=== PATIENT | male | born 1985 | race Caucasian/White ===

== ENCOUNTER → 2021-09-26 12:38 | Outpatient (CLI) | payer OTHER, SELFPAY ==
--- NOTE | ~2021-09-26 | US_ITS ---
EXAMINATION: US abdomen complete DATE: 09/26/2021 13:18 INDICATION: Unspecified abdominal pain TECHNIQUE: Multiple grayscale and Doppler ultrasound images of the abdomen were obtained. COMPARISON: None available FINDINGS: Bowel gas obscures visualization of the pancreas. The liver is normal with normal echogenic ity and echotexture. No surface nodularity. Normal hepatopetal flow in the main portal vein. The gall bladder is normal with no abnormal wall thickening, pericholecystic fluid or stones. The normal commo n bile duct measures 3 mm. There was no sonographic Tam sign. The visualized portions of the aorta and inferior vena cava are normal. The right kidney measures 12.1 x 5.6 x 6.4 cm. The left kidney measures 11.8 x 7.1 x 6.2 cm. The kidn eys demonstrate normal parenchymal echogenicity. There is no hydronephrosis. The spleen is normal in appearance and measures 13.2 cm. IMPRESSION: 1. No sonographic correlate for the patient's symptoms. Reviewed, dictated and finalized at location A.
== END ==
PROVIDERS: PCP Nurse Practitioner Family; Visit Provider Nurse Practitioner Family
DX: R10.9 Unspecified abdominal pain (principal)
CPT/HCPCS: 76700

== ENCOUNTER 2022-06-20 01:17 | Day surgery (SDC) | payer OTHER, SELFPAY ==
[2022-06-13 09:10] VITALS: BMI 34.9
--- NOTE | 2022-06-13 09:13 | PC.NURSE ---
Report to the Outpatient Waiting Room, entrance under the green pavilion located off [facility], at time 0600 on date 06/20/22. Planned Procedure Time: 0730. Time changes happen often and if your time is changed the preop area will call you the afternoon before. - You and your visitor will be asked to self-screen and do not enter if you have any COVID symptoms. - Only one visitor is requested with a max of two and NO children visitors are allowed at this time. - The patient visitor may be requested to leave or wait in car when not with patient due to distancing restrictions. - A mask is optional within the hospital at this time. Patients may have clear liquids (water, carbonated beverages, clear teas, apple juice) until 3 hours prior to surgery with a maximum of 20 ounces. - No food from midnight until time of surgery Take the following medications with a SIP of water the morning of surgery: N/A DO NOT STOP ANY OF YOUR OTHER PRESCRIPTION MEDICATIONS PRIOR TO SURGERY EXCEPT THE FOLLOWING Medications to discontinue per physician: N/A Date to take last dose: N/A Please no make-up, nail spanish, hairspray, perfume, deodorant, or body powder the day of surgery. No jewelry (including any body piercings) or valuables the day of surgery, leave them at home. Please take a shower or bath the night before, or the morning of, surgery with an antibacterial soap (HIBICLENS). Wear comfortable, loose fitting clothing. - Jewelry must be removed prior to entering the operating room. Rings and piercings that are not removed may be cut off. - The hospital will not accept responsibility for valuables. - Please leave all valuables, including medications, at home the day of surgery. If you are going home after surgery, a licensed home delivery driver must drive you home. - NO public transportation without another adult if you receive anesthesia. - We recommend that an adult stay with you for 24 hours following discharge. - We also recommend that you do not drive, make important decision, drink alcoholic beverages, or take any drugs that were not prescribed by your health care provider for at least 24 hours after your discharge time. Follow any additional instructions given to you from your surgeon. If you or anyone in your household have experienced Covid symptoms in the past week, please notify your surgeon or the nurse liaison at the phone number below for possible testing. Telephone instructions given to BRANDON LAUGHLIN and asked if any additional questions and then verbalized understanding. Patient advised to call surgeon office or pre surgery nurse liaison [phone] if any additional questions.
[2022-06-20] VITALS (7 sets, daily range): BP systolic 122–143; BP diastolic 65–92; PULSE 76–85; RESP 10–16; TEMP 36–36.3; O2SAT 99–100
[2022-06-20] MEDS: LACTATED RINGERS 1,000 ML 30 ML IV CONT (06:35)
[2022-06-20] MEDS: KETOROLAC 15 MG/ML VIAL (*BKC) IV PUSH (06:35)
[2022-06-20] MEDS: ACETAMINOPHEN 500 MG TABLET 1000 MG PO (06:35)
--- NOTE | 2022-06-20 06:48 | P.PNAN_ITS ---
Anes - Initial Pre Proc Eval Procedure: Operation Date: 06/20/22 07:30 Proposed Procedures p Open Umbilical Hernia Repair with Mesh - Patrizia Sosa MD Date/Time: 06/20/22 06:48 Surgeon: Patrizia Sosa MD Pre Op Diagnosis: Umb Hernia Patient Data Age: 37 Gender: M Height: 1.93 m Weight: 130 kg Last Vital Signs Temp 36.0 C L 06/20/22 06:10 Pulse 85 06/20/22 06:10 Resp 16 06/20/22 06:10 BP 143/91 H 06/20/22 06:10 Pulse Ox 99 06/20/22 06:10 O2 Del Method Room Air 06/20/22 06:10 Allergies Allergy/AdvReac Type Severity Reaction Status Date / Time shellfish derived Allergy Severe THROAT Verified 06/20/22 06:15 CLOSES Home Medications Medication Instructions Recorded Confirmed Type No Home Medications 06/13/22 06/20/22 History Patient hx anesthesia problems: none Family hx anesthesia problems: none Results Review: All pre-operative results and documents have been reviewed as part of the pre- operative evaluation. [facility] Past Medical History Medical History Abscess Body mass index [BMI] 30.0-30.9, adult (10/05/15) Dietary counseling and surveillance (06/12/17) Encounter for screening for lipoid disorders Infected sebaceous cyst of skin Local infection of the skin and subcutaneous tissue, unspecified Surgical History Surgical History H/O elbow surgery H/O knee surgery Family History Family History Father Patient's father is in good health Mother Patient's mother is in good health Social History Social History Smoking status: Never smoker Tobacco type: smokeless tobacco Smokeless tobacco user: chewing tobacco Alcohol intake: current Drinks per week: 8 Substance use: never Substance use type: does not use Living arrangements: with family Occupation/Education: occupation Gender identity (if verbalized by the patient): Male Spiritual care concerns: No Anes - Eval Final PreProcedure Day of Procedure 06/20/22 06:48 Patient weight: obese Heart: regular rate and rhythm Lungs: clear to auscultation Airway: Mallampati scale class II Neurological: alert and oriented Last oral intake: >/= 8 hours ASA classification: II Emergent: no Anesthetic plan: proceed Anesthesia type and monitoring: general LMA and standard monitoring Results Review: All pre-operative results and documents have been reviewed as part of the pre- operative evaluation. Informed Consent: The patient's anesthetic plan and its attendant risks and benefits were discu ssed with the patient/family/POA. Questions were solicited and answers provided to the satisfaction of the patient/family/POA.
--- NOTE | 2022-06-20 07:23 | PM.IMHP ---
H&P: HPI History of Present Illness Date/Time: 06/20/22 07:23 Chief Complaint: Periumbilical hernia Narrative: Mich is a 36 y/o male who presents to the office at the request of Larry Graham NP for evaluation of a painful bulge at his umbilicus. He states this bulge has been present for the past two years. He states he has pain with daily activities and after lifting heavy objects. He denies any problems with BM's. He has noticed a gradual increase in size. Review of Systems Review of Systems: All systems reviewed & are unremarkable except as noted in HPI and below PMFSH Past Medical History Medical History Abscess Body mass index [BMI] 30.0-30.9, adult (10/05/15) Dietary counseling and surveillance (06/12/17) Encounter for screening for lipoid disorders Infected sebaceous cyst of skin Local infection of the skin and subcutaneous tissue, unspecified Surgical History Surgical History H/O elbow surgery H/O knee surgery Family History Family History Father Patient's father is in good health Mother Patient's mother is in good health Social History Social History Smoking status: Never smoker Tobacco type: smokeless tobacco Smokeless tobacco user: chewing tobacco Alcohol intake: current Drinks per week: 8 Substance use: never Substance use type: does not use Living arrangements: with family Occupation/Education: occupation Gender identity (if verbalized by the patient): Male Spiritual care concerns: No Meds Home Medications and Allergies Home Medications Medication Instructions Recorded Confirmed Type No Home Medications 06/13/22 06/20/22 History Allergies Allergy/AdvReac Type Severity Reaction Status Date / Time shellfish derived Allergy Severe THROAT Verified 06/20/22 06:15 CLOSES Vital Signs Vital Signs - 24 hr 06/20/22 06:10 Temperature 36.0 C L Pulse Rate 85 Respiratory Rate 16 Blood Pressure 143/91 H Pulse Oximetry 99 Oxygen Delivery Room Air Exam Const: General: cooperative, comfortable, no acute distress and obese Resp: Auscultation: clear to auscultation bilaterally Cardio: Rate: regular rate Rhythm: regular rhythm GI: Inspection: normal to inspection, non-distended, obesity and visible herniation GI Palp: Yes abdominal tenderness, Yes Soft to palpation, Yes Tenderness to palpation present (GI), No Guarding due to palpation present (GI), No Rigid due to palpation and Yes Hernia present Other: periumbilical hernia - moderate sized approximately 4x3 cm, not reducible Assessment and Plan Assessment and plan (1) Umbilical hernia: Qualifiers: Obstruction and gangrene presence: without obstruction or gangrene Qualified Code(s): K42.9 - Umbilical hernia without obstruction or gangrene Code(s): K42.9 - Umbilical hernia without obstruction or gangrene Status: Acute Assessment and Plan: will setup for repair c mesh
--- NOTE | 2022-06-20 07:25 | WPDHPUPDATE1 ---
History and Physical Update Update Date/Time: 06/20/22 07:25 History and Physical has been reviewed, including an updated exam of the patient. There are NO changes in the patient's condition. Risks, benefits, and alternatives have been discussed and questions answered. Patient agrees to proceed with procedure.
[2022-06-20] MEDS: ceFAZolin 3 GM/D5W 100 ML 100 ML IVPB (07:30)
[2022-06-20] MEDS: BUPIVACAINE/EPINEPHRINE 0.5% 10 ML VIAL 30 ML INFILTRATE (08:01)
--- NOTE | 2022-06-20 08:33 | W.PM.PROC2 ---
Procedure Note - Detailed Date of Procedure 06/20/22 Pre-op Diagnosis incarcerated umbilical hernia Post-op Diagnosis Same Procedure Performed repair of incarcerated umbilical hernia with mesh Surgeon Patrizia Sosa MD Anesthesia General Indications 37 y/o M c incarcerated umbilical hernia Findings incarcerated umbilical hernia measuring approximately 2 and half by 1.5 cm Description of Procedure The patient was taken to the operating room placed in the supine position. After adequate induction of general anesthesia, the patient was prepped and draped in the normal sterile fashion. A time-out was then done to verify the patient's identity, as well as the procedure being performed. I began by localizing the area around the umbilicus. I then made a curvilinear incision in the infraumbilical fold. This was taken down to level fascia. I then was able to bluntly dissect around the umbilicus. I then carefully dissected the umbilicus off the underlying fascia. I then noted a 2.5 x 1.5 cm defect with a large amount of incarcerated preperitoneal fat. I was able to mobilize the incarcerated tissue and reduce it back into the abdominal cavity. This left an 2.5 x 1.5 cm defect. I then placed a 4.6 cm round piece of ventralex mesh in the underlay position. This was noted to have good, wide local coverage of the defect. I then closed this defect primarily with interrupted 0 Ethibond suture over the underlay mesh repair. I then reapproximated the umbilicus to the fascia with a 3 0 Vicryl U-stitch. The subcutaneous tissue was then closed with 3 0 Vicryl suture. The skin was closed with 4 0 Monocryl subcuticular suture. Dermabond was then placed on the wound. The patient tolerated the procedure well was extubated in the operating room postop. He will be transferred to the recovery room in stable condition. Implants 4.6 cm ventralex mesh in underlay position Estimated Blood Loss 5 Drains No Packing No Pathology None sent Complications No immediate complications Condition Stable Disposition PACU [facility] Billing Surgery - Charge Forward: Surgery Billing
--- NOTE | 2022-06-20 08:57 | SUR.PHASEI ---
0855: Simple mask removed.
== END 2022-06-20 10:15 | disposition home or self-care (01) ==
PROVIDERS: PCP Family Medicine; Visit Provider Surgery
PROC: (CPT 49592; principal; 2022-06-20 07:30)
DX: K42.0 Umbilical hernia with obstruction, without gangrene (principal); F17.220 Nicotine dependence, chewing tobacco, uncomplicated; E66.9 Obesity, unspecified; Z68.35 Body mass index [BMI] 35.0-35.9, adult
CPT/HCPCS: 49592; A9270; C1781; J0690; J1100; J1885; J2250; J2405; J2704; J3010; J7120